=== PATIENT | female | born 1960 ===

== ENCOUNTER 2024-07-29 07:30 | Inpatient (IN) | payer OTHER ==
[~2024-07-29] VITALS: Ht 152.4 cm; Wt 68.9 kg
[2024-07-29 08:57] LABS: HEMATOCRIT 38.6 % (36.0-45.00); HEMOGLOBIN 13.3 g/dL (12.0-15.00); MEAN CELL VOLUME 86.9 fL (80.00-100.00); MEAN CORPUSCULAR HEMOGLOBIN 29.9 pg (27.00-32.0); MEAN CORPUSCULAR HGB CONC 34.4 g/dl (32.0-36.0); PLATELET COUNT 321 K/uL (150-450); RED BLOOD COUNT 4.44 M/uL (4.00-6.00); RED CELL DISTRIBUTION WIDTH 13.5 % (11.5-14.5)
[2024-07-29 08:58] LABS: PH,URINE 6.5 (5.0-8.0); URINE APPEARANCE Clear; URINE BILIRRUBIN Negative (NEGATIVE); URINE BLOOD Negative; URINE COLOR Yellow; URINE GLUCOSE Negative (NEGATIVE); URINE KETONE Negative (NEGATIVE); URINE LEUKOCYTE Negative; URINE NITRATE Negative; URINE PROTEIN Negative (NEGATIVE); URINE UROBILINOGEN 0.2 E.U./dl
[2024-07-29] MEDS ORDERED: METFORMIN HCL500 M3 PO (08:59)
[2024-07-29] MEDS ORDERED: VISTARIL50 MG/ML PO (09:00)
[2024-07-29] MEDS ORDERED: ZESTRIL20 MG PO (09:00)
[2024-07-29] MEDS ORDERED: CARVEDILOL3.125 MG (09:00)
[2024-07-29] MEDS ORDERED: CHILDREN'S ASPI81 MG PO (09:01)
[2024-07-29] MEDS ORDERED: HALOPERIDOL2 MG PO (09:01)
[2024-07-29 09:02] LABS: URINE RBC 3.5 uL (0.0-20.8); URINE WBC 2.1 uL (0.0-23.2)
[2024-07-29] MEDS ORDERED: LANTUS SOL100 UNIT/1 (09:02)
[2024-07-29] MEDS ORDERED: PROLIXIN5 MG PO (09:02)
[2024-07-29 09:20] VITALS: BP 170/80
[2024-07-29 09:24] LABS: INR 1.03; PARTIAL THROMBOPLASTIN TIME 26.5 SECONDS (22.0-34.0); PROTHROMBIN TIME 11.2 SECONDS (9.0-11.5)
[2024-07-29 09:46] LABS: BILIRUBIN TOTAL 0.7 mg/dL (0.3-1.2); CALCIUM 9.8 mg/dL (8.5-10.1); CHOL HDL RATIO 2.3 (0-5.0); CREATININE SERUM 0.47 mg/dL (0.55-1.02); GFR 133.41; GLOBULINA 3.1 G/DL (2.4-3.5); POTASSIUM 4.26 mEq/L (3.5-5.1); TOTAL PROTEIN 7.1 gm/dL (6.4-8.2)
[2024-07-29 10:58] LABS: RH POSITIVE
[2024-08-04] MEDS ORDERED: LIDOCAINE HCL 1%/EPINEPHRINE 20ML VIAL IJ ONE (07:03)
[2024-08-04] MEDS ORDERED: BUPIVACAINE HCL/MPF 0.5% 30ML VIAL ONE (07:03)
[2024-08-04] MEDS ORDERED: VANCOMYCIN HCL 1,000 MG VIAL ONE ×2 (07:03→07:04)
[2024-08-04] MEDS ORDERED: KETOROLAC TROMETHAMINE 60 MG VIAL IM ONE (07:03)
[2024-08-04] MEDS ORDERED: TRANEXAMIC ACID 100MG/1ML (1000MG) AMPUL IV ONE (07:04)
[2024-08-04] MEDS ORDERED: MORPHINE SULFATE 4 MG/ML VIAL IV ONE ×3 (08:45→16:45)
[2024-08-04] MEDS ORDERED: POVIDONE-IODINE 118 ML BOTT TOP ONE (08:59)
[2024-08-04] MEDS ORDERED: SODIUM CHLORIDE 0.45 % 1,000 ML IV SCH (10:00)
[2024-08-04] MEDS ORDERED: MORPHINE SULFATE 4 MG/ML CARTRIDGE IV PRN (10:00)
[2024-08-04] MEDS ORDERED: ONDANSETRON HCL 2 MG/ML VIAL IV PRN (10:00)
[2024-08-04] MEDS ORDERED: OxyCODONE HCL 5 MG TABLET (ROXICODONE) PO PRN (10:00)
[2024-08-04] MEDS ORDERED: ACETAMINOPHEN 500 MG GEL..CAP PO SCH (12:00)
[2024-08-04] MEDS ORDERED: INSULIN LISPRO 1,000 UNIT/10 ML UNITS SUBCUTANEO PRN (15:00)
[2024-08-04] MEDS ORDERED: hydrALAZINE HCL 20 MG VIAL IV PRN (15:00)
[2024-08-04] MEDS ORDERED: DEXTROSE 50 % IN WATER 0.5 G/ML DISP.SYRIN IV PRN (15:00)
[2024-08-04] MEDS ORDERED: GABAPENTIN 300 MG CAPSULE PO ONE (16:24)
[2024-08-04] MEDS ORDERED: ACETAMINOPHEN 500 MG GEL..CAP PO ONE (16:24)
[2024-08-04] MEDS ORDERED: GABAPENTIN 300 MG CAPSULE PO SCH (17:00)
[2024-08-04 18:56] VITALS: BP 103/59; O2SAT 97
[2024-08-04] MEDS ORDERED: VANCOMYCIN HCL 1,000 MG in 0.9 % SODIUM CHLORIDE 250 ML IV SCH (21:00)
[2024-08-04] MEDS ORDERED: CARVEDILOL 3.125 MG TABLET PO SCH (21:00)
[2024-08-05 05:22] VITALS: BP 99/58; O2SAT 97
[2024-08-05 07:05] LABS: HEMATOCRIT 29.8 % (36.0-45.00); HEMOGLOBIN 10.4 g/dL (12.0-15.00); MEAN CELL VOLUME 86.2 fL (80.00-100.00); MEAN CORPUSCULAR HEMOGLOBIN 30.2 pg (27.00-32.0); PLATELET COUNT 225 K/uL (150-450); RED BLOOD COUNT 3.46 M/uL (4.00-6.00); RED CELL DISTRIBUTION WIDTH 13.6 % (11.5-14.5)
[2024-08-05] MEDS ORDERED: CIPRO500 MG PO (07:16)
[2024-08-05] MEDS ORDERED: ELIQUIS2.5 MG PO (07:16)
[2024-08-05] MEDS ORDERED: PERCOCET 5-3251 EACH PO (07:16)
[2024-08-05] MEDS ORDERED: APIXABAN 2.5 MG TABLET PO SCH (09:00)
[2024-08-05] MEDS ORDERED: ENALAPRIL MALEATE 20 MG TABLET PO SCH (09:00)
[2024-08-05] MEDS ORDERED: SENNOSIDES 1 TAB TABLET PO SCH (09:00)
[2024-08-05 09:12] VITALS: BP 135/58; O2SAT 96
[2024-08-05] MEDS ORDERED: SOD FERRIC GLUC COMPLX/SUCROSE 62.5 MG/5 ML AMPUL IV SCH (13:49)
[2024-08-05] MEDS ORDERED: Cyanocobalamin/Mecobalamin 1 TAB.SL SL SCH (13:50)
[2024-08-05 16:00] VITALS: BP 118/61; O2SAT 98
[2024-08-05] MEDS ORDERED: VITAMIN B COMPLEX 1 EACH PO SCH (17:00)
[2024-08-06 01:57] VITALS: BP 140/79; O2SAT 98
[2024-08-06 07:01] LABS: HEMATOCRIT 29.4 % (36.0-45.00); HEMOGLOBIN 10.3 g/dL (12.0-15.00); MEAN CELL VOLUME 86.3 fL (80.00-100.00); MEAN CORPUSCULAR HEMOGLOBIN 30.2 pg (27.00-32.0); PLATELET COUNT 233 K/uL (150-450); RED BLOOD COUNT 3.41 M/uL (4.00-6.00); RED CELL DISTRIBUTION WIDTH 13.5 % (11.5-14.5)
[2024-08-06] MEDS ORDERED: IRON FUM,PS/FOLIC ACID/VITC/B3 1 CAP CAPSULE PO SCH (09:00)
[2024-08-06] MEDS ORDERED: VANCOMYCIN HCL 1,000 MG VIAL IV NR (11:30)
[2024-08-06 16:00] VITALS: BP 135/77; O2SAT 97
[2024-08-06] MEDS ORDERED: VANCOMYCIN HCL 1,000 MG VIAL IV SCH (21:00)
== END 2024-08-06 20:29 | DRG 470 ==
LOC: O/R 08-04 05:46 → SURG 08-04 05:46 → SURH 08-04 07:30 → SURG 08-04 16:00
PROVIDERS: ADMIT Orthopaedic Surgery; ATTEND Orthopaedic Surgery
PROC: 0SRC0J9 Replacement of Right Knee Joint with Synthetic Substitute, Cemented, Open Approach (ICD-10-PCS; principal; 2024-08-04 14:30)
DX: M17.11 Unilateral primary osteoarthritis, right knee (principal); D62 Acute posthemorrhagic anemia; M22.11 Recurrent subluxation of patella, right knee